=== PATIENT | female | born 1935 | race Caucasian/White ===

== ENCOUNTER → 2018-01-05 | Outpatient (CLI) | payer OTHER ==
[~2018-01-05] MED LIST: ACET325 PO; ALBIPROI; ALBIPROI INH; ALBU.083IS IH; ALBU3IS INH; ALBU90OI61 INH; ALPR.5; ASPI325; ASPI325 PO; ATOR10; ATOR10 PO; ATOR20; ATOR20 PO; ATORVASTATIN CA10 MG PO; AZIT500 PO; Aspir-Low81 MG PO; BUDE.5 NEB; BUME2 PO; CARI350 PO; CEFU500 PO; CEPH500; CEPH500 PO; CLOP75 PO; CODACE30 PO; COMBIVENT RESPIM4 GM INH; CYCL10 PO; Carac30 GM TP; Cerovite Advan1 EACH PO; DOCU100 PO; FAMO20 PO; FLUO25TC TOP; FLUSAL2505 INH; FURO20 PO; FURO40; FURO40 PO; GABA100 PO; GUAI600T33 PO; HYDACE10B; HYDACE5 PO; IBUP600 PO; IBUP800; LASIX; LAVAP17G PO; LIDO5TP TOP; METO2.5 PO; METO25 PO; METO50 PO; METO50ER; MIRT30ST MM; MUCINEX D ER 61 EACH PO; MULVITB&C PO; NITR.6SL SL; Neurontin 100100 MG PO; OMEP20ER PO; OMEPRAZOLE MAGN20 MG PO; OXYC10TA19 PO; Oxycodone HCl20 M1 PO; PAIN & FEVER325 MG PO; PARI1 PO; PARICALCITOL1 MCG PO; PIOG30 PO; PIOG45; POLY17UD PO; POTA10T; POTA10T PO; POTCHL10ER PO; POTCHL20ER; POTCHL20ER PO; PRED10; Pantoprazole So40 MG PO; Plavix75 MG PO; Potassium Chlo10 ME1 PO; Prednisone20 MG PO; QUIN10; QUIN5 PO; QUINAPRIL HCL PO; RANI150EL; SPIR25 PO; [UNRECOGNIZED DRUG - REMARK]
== END | disposition home or self-care (01) ==
LOC: LAB SHORT 07:21 → PLD 07:21
DX: C44.622 Squamous cell carcinoma of skin of right upper limb, including shoulder (principal)
CPT/HCPCS: 88305

== ENCOUNTER 2018-03-06 17:22 | Emergency (ER) | payer OTHER ==
[~2018-03-06] VITALS: Ht 152.4 cm; Wt 62.6 kg
[~2018-03-06 17:22] MED LIST changes: -ALBU3IS INH; -Cerovite Advan1 EACH PO; -FAMO20 PO; -MIRT30ST MM; -OMEPRAZOLE MAGN20 MG PO; -POTCHL20ER PO; -Pantoprazole So40 MG PO; -RANI150EL; -SPIR25 PO
[2018-03-06] MEDS ORDERED: RANI150EL (18:34)
[2018-03-06] MEDS ORDERED: CLOP75 PO (18:34)
[2018-03-06] MEDS ORDERED: Cerovite Advan1 EACH PO (18:35)
[2018-03-06] MEDS ORDERED: BUME2 PO (18:35)
[2018-03-06] MEDS ORDERED: NITR.6SL SL (18:36)
== END 2018-03-06 19:34 | disposition home or self-care (01) ==
LOC: ER 17:22
DX: S80.11XA Contusion of right lower leg, initial encounter (principal); J44.9 Chronic obstructive pulmonary disease, unspecified; I10 Essential (primary) hypertension; I25.2 Old myocardial infarction; Z87.891 Personal history of nicotine dependence; Z79.899 Other long term (current) drug therapy; Z79.82 Long term (current) use of aspirin; Z79.01 Long term (current) use of anticoagulants; W22.8XXA Striking against or struck by other objects, initial encounter
CPT/HCPCS: 93971; 99284

== ENCOUNTER 2018-06-05 17:47 | Inpatient (IN) | payer OTHER ==
[~2018-06-05] VITALS: Ht 152.4 cm; Wt 56.3 kg
[~2018-06-05 17:47] MED LIST changes: +Cerovite Advan1 EACH PO; +OMEPRAZOLE MAGN20 MG PO; +RANI150EL
[2018-06-05] MEDS ORDERED: ALBU3IS INH (18:45)
[2018-06-05] MEDS ORDERED: Pantoprazole So40 MG PO (18:46)
[2018-06-05 19:34] LABS: BASOPHILS ABSOLUTE AUTO 0.02 K/mm3 (0.00-0.23); BASOPHILS PERCENT AUTO 0 % (0-2); EOSINOPHILS ABSOLUTE AUTO 0.05 K/mm3 (0.00-0.68); EOSINOPHILS PERCENT AUTO 1 % (0-6); Hematocrit 34.7 % (33.0-51.0); Hemoglobin 12.3 g/dL (11.5-16.0); IMMATURE GRAN ABSOLUTE AUTO 0.03 K/mm3 (0.00-0.10); IMMATURE GRAN PERCENT AUTO 0 % (0-1); LYMPHOCYTES ABSOLUTE AUTO 1.09 K/mm3 (0.84-5.20); LYMPHOCYTES PERCENT AUTO 11 % (21-46); MONOCYTES ABSOLUTE AUTO 1.28 K/mm3 (0.16-1.47); MONOCYTES PERCENT AUTO 13 % (4-13); Mean Corpuscular HGB 32.5 pg (26.0-34.0); Mean Corpuscular HGB Conc 35.4 g/dL (31.5-36.5); Mean Corpuscular Volume 92 fL (80-100); Mean Platelet Volume 9.9 fL (9.1-12.4); NEUTROPHILS ABSOLUTE AUTO 7.24 K/mm3 (1.96-9.15); NEUTROPHILS PERCENT AUTO 75 % (41-73); Platelet Count 267 K/mm3 (150-400); RDW Coefficient Variation 12.5 % (11.7-14.2); RDW Standard Deviation 41.7 fL (35.1-46.3); Red Blood Cell Count 3.78 M/mm3 (3.80-5.20); White Blood Cell Count 9.71 K/mm3 (4.00-11.30)
[2018-06-05 21:58] LABS: Magnesium, Blood 1.8 mg/dL (1.6-2.4); Phosphorus, Blood 2.8 mg/dL (2.5-4.9)
[2018-06-06 04:41] LABS: Hematocrit 31.5 % (33.0-51.0); Hemoglobin 11.1 g/dL (11.5-16.0)
[2018-06-06 05:07] LABS: Bun/Creatinine Ratio 21.1 (12.0-20.0); Calcium, Blood 7.6 mg/dL (8.5-10.1); Creatinine, Blood 1.09 mg/dL (0.40-1.00); Potassium, Blood 2.4 mmol/L (3.5-5.5)
[2018-06-06 05:09] LABS: Magnesium, Blood 1.7 mg/dL (1.6-2.4); Uric Acid, Blood 8.2 mg/dL (2.6-6.0)
[2018-06-06 05:16] LABS: Albumin, Blood 3.1 g/dL (3.4-5.0); Anion Gap 8 mmol/L (6-16); Blood Urea Nitrogen 23 mg/dL (8-24); Bun/Creatinine Ratio 21.5 (12.0-20.0); CO2, Blood 39 mmol/L (21-32); Calcium, Blood 7.6 mg/dL (8.5-10.1); Chloride, Blood 79 mmol/L (98-108); Creatinine, Blood 1.07 mg/dL (0.40-1.00); Glomerular Filtration Rate 52 (60-); Glucose, Blood 110 mg/dL (70-99); Phosphorus, Blood 2.7 mg/dL (2.5-4.9); Potassium, Blood 2.4 mmol/L (3.5-5.5); Sodium, Blood 126 mmol/L (136-145)
[2018-06-07 05:14] LABS: Hematocrit 33.1 % (33.0-51.0); Hemoglobin 11.2 g/dL (11.5-16.0)
[2018-06-07 05:30] LABS: Albumin, Blood 3.1 g/dL (3.4-5.0); Anion Gap 8 mmol/L (6-16); Blood Urea Nitrogen 22 mg/dL (8-24); CO2, Blood 41 mmol/L (21-32); Calcium, Blood 8.1 mg/dL (8.5-10.1); Chloride, Blood 82 mmol/L (98-108); Creatinine, Blood 1.16 mg/dL (0.40-1.00); Glomerular Filtration Rate 48 (60-); Glucose, Blood 110 mg/dL (70-99); Magnesium, Blood 1.9 mg/dL (1.6-2.4); Phosphorus, Blood 2.4 mg/dL (2.5-4.9); Potassium, Blood 2.8 mmol/L (3.5-5.5); Sodium, Blood 131 mmol/L (136-145)
[2018-06-08 05:13] LABS: Hematocrit 33.9 % (33.0-51.0); Hemoglobin 11.2 g/dL (11.5-16.0)
[2018-06-08 05:52] LABS: Magnesium, Blood 1.8 mg/dL (1.6-2.4)
[2018-06-08 05:56] LABS: Albumin, Blood 3.1 g/dL (3.4-5.0); Anion Gap 8 mmol/L (6-16); Blood Urea Nitrogen 21 mg/dL (8-24); Bun/Creatinine Ratio 18.4 (12.0-20.0); CO2, Blood 40 mmol/L (21-32); Calcium, Blood 8.6 mg/dL (8.5-10.1); Chloride, Blood 85 mmol/L (98-108); Creatinine, Blood 1.14 mg/dL (0.40-1.00); Glomerular Filtration Rate 49 (60-); Glucose, Blood 101 mg/dL (70-99); Phosphorus, Blood 3.2 mg/dL (2.5-4.9); Potassium, Blood 4.1 mmol/L (3.5-5.5); Sodium, Blood 133 mmol/L (136-145)
[2018-06-09 05:12] LABS: Hematocrit 35.2 % (33.0-51.0); Hemoglobin 11.4 g/dL (11.5-16.0)
[2018-06-09 05:38] LABS: Albumin, Blood 3.1 g/dL (3.4-5.0); Anion Gap 3 mmol/L (6-16); Blood Urea Nitrogen 20 mg/dL (8-24); Bun/Creatinine Ratio 17.5 (12.0-20.0); CO2, Blood 40 mmol/L (21-32); Calcium, Blood 8.9 mg/dL (8.5-10.1); Chloride, Blood 89 mmol/L (98-108); Creatinine, Blood 1.14 mg/dL (0.40-1.00); Glomerular Filtration Rate 49 (60-); Glucose, Blood 98 mg/dL (70-99); Magnesium, Blood 1.8 mg/dL (1.6-2.4); Phosphorus, Blood 3.3 mg/dL (2.5-4.9); Potassium, Blood 4.7 mmol/L (3.5-5.5); Sodium, Blood 132 mmol/L (136-145)
[2018-06-10 05:22] LABS: Hematocrit 35.2 % (33.0-51.0); Hemoglobin 11.4 g/dL (11.5-16.0)
[2018-06-10 05:43] LABS: Albumin, Blood 3.2 g/dL (3.4-5.0); Anion Gap 4 mmol/L (6-16); Blood Urea Nitrogen 22 mg/dL (8-24); Bun/Creatinine Ratio 16.2 (12.0-20.0); CO2, Blood 40 mmol/L (21-32); Calcium, Blood 9.3 mg/dL (8.5-10.1); Chloride, Blood 89 mmol/L (98-108); Creatinine, Blood 1.36 mg/dL (0.40-1.00); Glomerular Filtration Rate 40 (60-); Glucose, Blood 103 mg/dL (70-99); Magnesium, Blood 1.8 mg/dL (1.6-2.4); Phosphorus, Blood 3.7 mg/dL (2.5-4.9); Potassium, Blood 4.7 mmol/L (3.5-5.5); Sodium, Blood 133 mmol/L (136-145)
[2018-06-11 05:27] LABS: Hematocrit 35.1 % (33.0-51.0); Hemoglobin 11.3 g/dL (11.5-16.0)
[2018-06-11 05:49] LABS: Albumin, Blood 3.2 g/dL (3.4-5.0); Anion Gap 4 mmol/L (6-16); Blood Urea Nitrogen 22 mg/dL (8-24); Bun/Creatinine Ratio 17.2 (12.0-20.0); CO2, Blood 37 mmol/L (21-32); Calcium, Blood 9.3 mg/dL (8.5-10.1); Chloride, Blood 91 mmol/L (98-108); Creatinine, Blood 1.28 mg/dL (0.40-1.00); Glomerular Filtration Rate 42 (60-); Glucose, Blood 92 mg/dL (70-99); Magnesium, Blood 1.9 mg/dL (1.6-2.4); Potassium, Blood 4.5 mmol/L (3.5-5.5); Sodium, Blood 132 mmol/L (136-145)
[2018-06-12 05:20] LABS: Hematocrit 32.8 % (33.0-51.0); Hemoglobin 10.8 g/dL (11.5-16.0)
[2018-06-12 05:47] LABS: Magnesium, Blood 2.1 mg/dL (1.6-2.4)
[2018-06-12 05:52] LABS: Albumin, Blood 3.1 g/dL (3.4-5.0); Anion Gap 4 mmol/L (6-16); Blood Urea Nitrogen 20 mg/dL (8-24); Bun/Creatinine Ratio 15.9 (12.0-20.0); CO2, Blood 39 mmol/L (21-32); Calcium, Blood 9.4 mg/dL (8.5-10.1); Chloride, Blood 92 mmol/L (98-108); Creatinine, Blood 1.26 mg/dL (0.40-1.00); Glomerular Filtration Rate 43 (60-); Glucose, Blood 92 mg/dL (70-99); Phosphorus, Blood 3.9 mg/dL (2.5-4.9); Sodium, Blood 135 mmol/L (136-145)
[2018-06-12] MEDS ORDERED: SPIR25 PO (12:12)
[2018-06-13 05:14] LABS: Hematocrit 35.4 % (33.0-51.0); Hemoglobin 11.3 g/dL (11.5-16.0)
[2018-06-13 05:33] LABS: Albumin, Blood 3.3 g/dL (3.4-5.0); Anion Gap 6 mmol/L (6-16); Blood Urea Nitrogen 19 mg/dL (8-24); Bun/Creatinine Ratio 14.6 (12.0-20.0); CO2, Blood 36 mmol/L (21-32); Calcium, Blood 8.8 mg/dL (8.5-10.1); Chloride, Blood 93 mmol/L (98-108); Glomerular Filtration Rate 42 (60-); Glucose, Blood 87 mg/dL (70-99); Magnesium, Blood 2.2 mg/dL (1.6-2.4); Phosphorus, Blood 4.2 mg/dL (2.5-4.9); Sodium, Blood 135 mmol/L (136-145)
[2018-06-13 09:15] LABS: ALDOS/RENIN RATIO 1.3 (0.0-30.0); ALDOSTERONE 22.9 ng/dL (0.0-30.0)
== END 2018-06-13 08:35 | disposition home or self-care (01) | DRG 683 ==
LOC: ER 17:47 → MEDS 18:23 → ENPENDDIS 06-12 10:23 → EDPENDDIS 06-12 10:23 → MEDS 06-13 08:35
PROVIDERS: Emergency Medicine; Hospitalist; Internal Medicine Nephrology
DX: N17.9 Acute kidney failure, unspecified (principal); I50.32 Chronic diastolic (congestive) heart failure; I13.0 Hypertensive heart and chronic kidney disease with heart failure and stage 1 through stage 4 chronic kidney disease, or unspecified chronic kidney disease; E87.1 Hypo-osmolality and hyponatremia; E87.3 Alkalosis; E87.6 Hypokalemia; N25.81 Secondary hyperparathyroidism of renal origin; J44.9 Chronic obstructive pulmonary disease, unspecified; M81.0 Age-related osteoporosis without current pathological fracture; I25.2 Old myocardial infarction; I48.0 Paroxysmal atrial fibrillation; N18.3 Chronic kidney disease, stage 3 (moderate); I25.10 Atherosclerotic heart disease of native coronary artery without angina pectoris; Z95.5 Presence of coronary angioplasty implant and graft; Z87.891 Personal history of nicotine dependence; E87.70 Fluid overload, unspecified; E88.09 Other disorders of plasma-protein metabolism, not elsewhere classified; E87.8 Other disorders of electrolyte and fluid balance, not elsewhere classified; R79.9 Abnormal finding of blood chemistry, unspecified; D63.1 Anemia in chronic kidney disease; Z99.81 Dependence on supplemental oxygen; T50.2X5A Adverse effect of carbonic-anhydrase inhibitors, benzothiadiazides and other diuretics, initial encounter; Y92.9 Unspecified place or not applicable
CPT/HCPCS: 36415; 74176; 76770; 80048; 80069; 82088; 82533; 83735; 83880; 84100; 84132; 84244; 84295; 84443; 84550; 85014; 85018; 85025; 87493; 93005; 93010; 94640; 94760; 96361; 96374; 97116; 97161; 97530; 99285-25; G8978; G8979; J1644; J3480; J7030; J7060

== ENCOUNTER 2018-06-20 11:30 | Inpatient (IN) | payer OTHER ==
[~2018-06-20] VITALS: Ht 152.4 cm; Wt 53.6 kg
[~2018-06-20 11:30] MED LIST changes: +ALBU3IS INH; +Pantoprazole So40 MG PO; +SPIR25 PO
[2018-06-20 11:54] LABS: BASOPHILS ABSOLUTE AUTO 0.01 K/mm3 (0.00-0.23); BASOPHILS PERCENT AUTO 0 % (0-2); EOSINOPHILS ABSOLUTE AUTO 0.01 K/mm3 (0.00-0.68); EOSINOPHILS PERCENT AUTO 0 % (0-6); Hematocrit 35.7 % (33.0-51.0); Hemoglobin 13.2 g/dL (11.5-16.0); IMMATURE GRAN ABSOLUTE AUTO 0.03 K/mm3 (0.00-0.10); IMMATURE GRAN PERCENT AUTO 0 % (0-1); LYMPHOCYTES ABSOLUTE AUTO 0.54 K/mm3 (0.84-5.20); LYMPHOCYTES PERCENT AUTO 5 % (21-46); MONOCYTES ABSOLUTE AUTO 0.96 K/mm3 (0.16-1.47); MONOCYTES PERCENT AUTO 9 % (4-13); Mean Corpuscular HGB 33.3 pg (26.0-34.0); Mean Corpuscular Volume 90 fL (80-100); Mean Platelet Volume 9.5 fL (9.1-12.4); NEUTROPHILS ABSOLUTE AUTO 8.75 K/mm3 (1.96-9.15); NEUTROPHILS PERCENT AUTO 85 % (41-73); Platelet Count 260 K/mm3 (150-400); RDW Coefficient Variation 11.5 % (11.7-14.2); RDW Standard Deviation 37.8 fL (35.1-46.3); Red Blood Cell Count 3.96 M/mm3 (3.80-5.20)
[2018-06-20 12:48] LABS: Albumin, Blood 3.8 g/dL (3.4-5.0); Albumin/Globulin Ratio 0.9 (0.8-1.8); Bun/Creatinine Ratio 23.3 (12.0-20.0); Creatinine, Blood 1.16 mg/dL (0.40-1.00); Globulin, Blood 4.1 g/dL (2.2-4.0); Potassium, Blood 1.8 mmol/L (3.5-5.5); Total Protein, Blood 7.9 g/dL (6.4-8.2)
[2018-06-20 13:19] LABS: Troponin I 0.018 ng/mL (0.000-0.040)
[2018-06-20 16:47] LABS: Potassium, Blood 2.2 mmol/L (3.5-5.5)
[2018-06-20 16:51] LABS: Magnesium, Blood 1.7 mg/dL (1.6-2.4); Uric Acid, Blood 8.4 mg/dL (2.6-6.0)
[2018-06-21 02:06] LABS: Potassium, Blood 3.8 mmol/L (3.5-5.5)
[2018-06-21 03:41] LABS: Hematocrit 32.7 % (33.0-51.0); Hemoglobin 11.4 g/dL (11.5-16.0)
[2018-06-21 04:05] LABS: Albumin, Blood 3.2 g/dL (3.4-5.0); Anion Gap 6 mmol/L (6-16); Blood Urea Nitrogen 22 mg/dL (8-24); CO2, Blood 37 mmol/L (21-32); Calcium, Blood 7.3 mg/dL (8.5-10.1); Chloride, Blood 85 mmol/L (98-108); Creatinine, Blood 1.05 mg/dL (0.40-1.00); Glomerular Filtration Rate 53 (60-); Glucose, Blood 98 mg/dL (70-99); Magnesium, Blood 1.7 mg/dL (1.6-2.4); Phosphorus, Blood 1.3 mg/dL (2.5-4.9); Potassium, Blood 3.4 mmol/L (3.5-5.5); Sodium, Blood 128 mmol/L (136-145)
[2018-06-21 14:43] LABS: Phosphorus, Blood 3.4 mg/dL (2.5-4.9); Potassium, Blood 3.8 mmol/L (3.5-5.5)
[2018-06-22 05:38] LABS: Hematocrit 39.7 % (33.0-51.0); Hemoglobin 13.5 g/dL (11.5-16.0)
[2018-06-22 06:03] LABS: Albumin, Blood 3.5 g/dL (3.4-5.0); Anion Gap 12 mmol/L (6-16); Blood Urea Nitrogen 14 mg/dL (8-24); Bun/Creatinine Ratio 16.3 (12.0-20.0); CO2, Blood 34 mmol/L (21-32); Calcium, Blood 8.1 mg/dL (8.5-10.1); Chloride, Blood 88 mmol/L (98-108); Creatinine, Blood 0.86 mg/dL (0.40-1.00); Glomerular Filtration Rate >60 (60-); Glucose, Blood 107 mg/dL (70-99); Phosphorus, Blood 1.8 mg/dL (2.5-4.9); Sodium, Blood 134 mmol/L (136-145)
[2018-06-22] MEDS ORDERED: FAMO20 PO (13:10)
[2018-06-22] MEDS ORDERED: MIRT30ST MM (13:11)
== END 2018-06-22 13:30 | DRG 683 ==
LOC: ER 11:30 → ICUE 13:47 → ICUW 13:47 → ICUE 14:37 → MEDS 14:56 → ICUE 06-21 09:50 → MEDS 06-21 15:15 → ENPENDDIS 06-22 10:14 → MEDS 06-22 13:30
PROVIDERS: Emergency Medicine; Internal Medicine; Internal Medicine Nephrology
DX: N17.9 Acute kidney failure, unspecified (principal); I13.0 Hypertensive heart and chronic kidney disease with heart failure and stage 1 through stage 4 chronic kidney disease, or unspecified chronic kidney disease; E87.1 Hypo-osmolality and hyponatremia; N25.81 Secondary hyperparathyroidism of renal origin; J44.9 Chronic obstructive pulmonary disease, unspecified; I25.2 Old myocardial infarction; M81.0 Age-related osteoporosis without current pathological fracture; Z95.5 Presence of coronary angioplasty implant and graft; E87.6 Hypokalemia; E86.0 Dehydration; N18.3 Chronic kidney disease, stage 3 (moderate); Z87.891 Personal history of nicotine dependence; Z79.82 Long term (current) use of aspirin; E86.1 Hypovolemia; I48.91 Unspecified atrial fibrillation; E87.70 Fluid overload, unspecified; E83.39 Other disorders of phosphorus metabolism; D63.1 Anemia in chronic kidney disease; R26.89 Other abnormalities of gait and mobility
CPT/HCPCS: 36415; 71046; 80048; 80053; 80069; 82533; 83735; 83880; 83930; 84100; 84132; 84295; 84443; 84484; 84550; 85014; 85018; 85025; 93005; 93010; 96365; 97116; 97161; 97166; 97535; 99285-25; G8978; G8979; G8987; G8988; J1650; J3480; J7030; J7040; J7060; Q0167

== ENCOUNTER 2018-07-08 14:53 | Emergency (ER) | payer OTHER ==
[~2018-07-08] VITALS: Ht 154.9 cm; Wt 68.0 kg
[~2018-07-08 14:53] MED LIST changes: +FAMO20 PO; +MIRT30ST MM
[2018-07-08] MEDS ORDERED: POTCHL20ER PO (15:26)
[2018-07-08] MEDS ORDERED: Oxycodone HCl20 M1 PO (15:27)
[2018-07-08 16:09] LABS: BASOPHILS ABSOLUTE AUTO 0.05 K/mm3 (0.00-0.23); BASOPHILS PERCENT AUTO 1 % (0-2); EOSINOPHILS ABSOLUTE AUTO 0.06 K/mm3 (0.00-0.68); EOSINOPHILS PERCENT AUTO 1 % (0-6); Hematocrit 37.8 % (33.0-51.0); IMMATURE GRAN ABSOLUTE AUTO 0.02 K/mm3 (0.00-0.10); IMMATURE GRAN PERCENT AUTO 0 % (0-1); LYMPHOCYTES ABSOLUTE AUTO 0.71 K/mm3 (0.84-5.20); LYMPHOCYTES PERCENT AUTO 12 % (21-46); MONOCYTES ABSOLUTE AUTO 0.77 K/mm3 (0.16-1.47); MONOCYTES PERCENT AUTO 13 % (4-13); Mean Corpuscular HGB 32.6 pg (26.0-34.0); Mean Corpuscular HGB Conc 31.7 g/dL (31.5-36.5); Mean Corpuscular Volume 103 fL (80-100); NEUTROPHILS PERCENT AUTO 73 % (41-73); Platelet Count 210 K/mm3 (150-400); RDW Coefficient Variation 12.2 % (11.7-14.2); RDW Standard Deviation 46.6 fL (35.1-46.3); Red Blood Cell Count 3.68 M/mm3 (3.80-5.20); White Blood Cell Count 6.01 K/mm3 (4.00-11.30)
[2018-07-08 16:55] LABS: Albumin, Blood 3.3 g/dL (3.4-5.0); Albumin/Globulin Ratio 0.9 (0.8-1.8); Bilirubin, Total 0.6 mg/dL (0.1-1.0); Calcium, Blood 8.9 mg/dL (8.5-10.1); Globulin, Blood 3.8 g/dL (2.2-4.0); Potassium, Blood 4.9 mmol/L (3.5-5.5); Total Protein, Blood 7.1 g/dL (6.4-8.2)
== END 2018-07-08 20:41 | disposition home or self-care (01) ==
LOC: ER 14:53
PROVIDERS: Emergency Medicine
DX: R45.1 Restlessness and agitation (principal); R41.82 Altered mental status, unspecified; F03.90 Unspecified dementia, unspecified severity, without behavioral disturbance, psychotic disturbance, mood disturbance, and anxiety; J44.9 Chronic obstructive pulmonary disease, unspecified; I10 Essential (primary) hypertension; I25.2 Old myocardial infarction; I48.91 Unspecified atrial fibrillation; Z79.899 Other long term (current) drug therapy; Z79.01 Long term (current) use of anticoagulants; Z79.82 Long term (current) use of aspirin; Z79.51 Long term (current) use of inhaled steroids; Z87.891 Personal history of nicotine dependence
CPT/HCPCS: 36415; 80053; 85025; 99285

== ENCOUNTER 2018-11-11 19:27 | Observation (INO) | payer OTHER ==
[~2018-11-11] VITALS: Ht 152.4 cm; Wt 69.8 kg
[~2018-11-11 19:27] MED LIST changes: -MIRT30ST MM; +MIRT30ST PO; +POTCHL20ER PO
[2018-11-11 20:10] LABS: Calcium, Ionized (POC) 0.96 mmol/L (1.10-1.46); Chloride (POC) 76 mmol/L (98-108); Creatinine (POC) 2.1 mg/dL (0.6-1.0); Glucose (ISTAT POC) 141 mg/dL (70-99); Hemoglobin (POC) 13.6 g/dL (12.0-16.0); Potassium (POC) 2.6 mmol/L (3.5-5.5); Sodium (POC) 128 mmol/L (135-148); Total CO2 (POC) 40 mmol/L (21-32)
[2018-11-11 21:26] LABS: Albumin, Blood 2.9 g/dL (3.4-5.0); Albumin/Globulin Ratio 0.8 (0.8-1.8); Bilirubin, Total 1.1 mg/dL (0.1-1.0); Bun/Creatinine Ratio 37.8 (12.0-20.0); Calcium, Blood 8.1 mg/dL (8.5-10.1); Creatinine, Blood 1.85 mg/dL (0.40-1.00); Globulin, Blood 3.6 g/dL (2.2-4.0); Total Protein, Blood 6.5 g/dL (6.4-8.2)
[2018-11-11 22:41] LABS: BASOPHILS ABSOLUTE AUTO 0.02 K/mm3 (0.00-0.23); BASOPHILS PERCENT AUTO 0 % (0-2); EOSINOPHILS PERCENT AUTO 0 % (0-6); Hematocrit 31.7 % (33.0-51.0); Hemoglobin 10.3 g/dL (11.5-16.0); IMMATURE GRAN ABSOLUTE AUTO 0.03 K/mm3 (0.00-0.10); IMMATURE GRAN PERCENT AUTO 0 % (0-1); LYMPHOCYTES ABSOLUTE AUTO 0.67 K/mm3 (0.84-5.20); LYMPHOCYTES PERCENT AUTO 6 % (21-46); MONOCYTES ABSOLUTE AUTO 0.78 K/mm3 (0.16-1.47); MONOCYTES PERCENT AUTO 7 % (4-13); Mean Corpuscular HGB 30.6 pg (26.0-34.0); Mean Corpuscular HGB Conc 32.5 g/dL (31.5-36.5); Mean Corpuscular Volume 94 fL (80-100); Mean Platelet Volume 9.8 fL (9.1-12.4); NEUTROPHILS ABSOLUTE AUTO 9.22 K/mm3 (1.96-9.15); NEUTROPHILS PERCENT AUTO 86 % (41-73); Platelet Count 234 K/mm3 (150-400); RDW Coefficient Variation 12.4 % (11.7-14.2); RDW Standard Deviation 42.9 fL (35.1-46.3); Red Blood Cell Count 3.37 M/mm3 (3.80-5.20); White Blood Cell Count 10.72 K/mm3 (4.00-11.30)
--- NOTE | 2018-11-12 04:00 | NUR ---
SHIFT SUMMARY PT ARRIVED TO FLOOR. PT WAS HEAD WAS CLEANED OF DRIED BLOOD AND DRESSED. PT ARMS WERE REDRESSED WELL. PT WAS ABLE TO AMBULATE TO RESTROOM WITH ONE ASSIST. PT COMPLAINED OF NO DIZZINESS. PT HAS NO ACUTE ISSUES NOTED AT THIS TIME. PT IS CURRENTLY SLEEPING AND BREATHING EASY. BED ALARM ARMED AND CALL LIGHT IN REACH.
[2018-11-12 05:29] LABS: BASOPHILS ABSOLUTE AUTO 0.03 K/mm3 (0.00-0.23); BASOPHILS PERCENT AUTO 0 % (0-2); EOSINOPHILS ABSOLUTE AUTO 0.04 K/mm3 (0.00-0.68); EOSINOPHILS PERCENT AUTO 0 % (0-6); Hemoglobin 9.5 g/dL (11.5-16.0); IMMATURE GRAN ABSOLUTE AUTO 0.03 K/mm3 (0.00-0.10); IMMATURE GRAN PERCENT AUTO 0 % (0-1); LYMPHOCYTES PERCENT AUTO 15 % (21-46); MONOCYTES ABSOLUTE AUTO 0.94 K/mm3 (0.16-1.47); MONOCYTES PERCENT AUTO 10 % (4-13); Mean Corpuscular HGB 30.2 pg (26.0-34.0); Mean Corpuscular HGB Conc 32.8 g/dL (31.5-36.5); Mean Corpuscular Volume 92 fL (80-100); Mean Platelet Volume 10.2 fL (9.1-12.4); NEUTROPHILS ABSOLUTE AUTO 7.07 K/mm3 (1.96-9.15); NEUTROPHILS PERCENT AUTO 74 % (41-73); Platelet Count 217 K/mm3 (150-400); RDW Coefficient Variation 12.5 % (11.7-14.2); Red Blood Cell Count 3.15 M/mm3 (3.80-5.20); White Blood Cell Count 9.51 K/mm3 (4.00-11.30)
[2018-11-12 05:49] LABS: Bun/Creatinine Ratio 38.4 (12.0-20.0); Calcium, Blood 7.5 mg/dL (8.5-10.1); Creatinine, Blood 1.72 mg/dL (0.40-1.00); Potassium, Blood 2.6 mmol/L (3.5-5.5)
--- NOTE | 2018-11-12 18:31 | NUR ---
SHIFT SUMMARY: NO ACUTE CHANGES TO REPORT THIS SHIFT. PT A&O; CALM AND COOPERATIVE WITH CARE. NO C/O PAIN OR NAUSEA THIS SHIFT. WEAKNESS TO BLE; 1-ASSIST c FWW TO BSC. K+ LOW; ORAL & IV K+ ADMINISTERED; LEVELS STILL TOO LOW TO DISCHARGE PATIENT. SKIN TEARS TO SCALP, R ARM; PREVENTATIVE MEPILEX TO COCCYX. LABS SCHEDULED FOR 11/13. JASON.
--- NOTE | 2018-11-13 02:55 | NUR ---
DEAN OF ADMISSIONS CALLED PT HAD SHORT RUN OF V-TACH. PT WAS ASSESSED AND PT HAD STRONG RADIAL PULSE AND REPORTED NO CX PAIN OR SOB.
--- NOTE | 2018-11-13 03:17 | NUR ---
SHIFT SUMMARY PT HAD A GOOD SHIFT. PT ATE ICE CHIPS AND WATCHED THE NEWS THROUGHOUT THE NIGHT. PT DID HAVE SHORT RUN OF V-TACH, PT HAD NO ISSUES RELATED TO V-TACH RUN. PT IS CURRENTLY SLEEPING AND BREATHING EASY. CALL LIGHT IN REACH.
[2018-11-13 05:10] LABS: Bun/Creatinine Ratio 37.1 (12.0-20.0); Calcium, Blood 7.1 mg/dL (8.5-10.1); Creatinine, Blood 1.59 mg/dL (0.40-1.00); Magnesium, Blood 1.7 mg/dL (1.6-2.4); Potassium, Blood 3.9 mmol/L (3.5-5.5)
--- NOTE | 2018-11-13 18:07 | NUR ---
SHIFT SUMMARY PT AXO TO SELF, SURROUNDINGS AND FOLLOWING DIRECTIONS. PT EAGER TO BE DISCHARGED HOME. VSS, NO ACUTE CHANGES THIS SHIFT. ALL DRESSINGS CHANGED AND CDI. PT'S CAREGIVER CALLED NURSE AND STATED THAT PT DRINKS "RUM [employer]KE" ALL DAY. SHE STATES THAT PT "ALWAYS HAS A DRINK INFRONT OF HER." NURSE NOTIFIED DR SHEPPARD AT 1256 WHO INITIATED CIWAS BE ASSESSED Q4. PT HAS SCORED 3 WITH EACH. UP WITH 1 ASSIST WITH FWW AND GB. BED IN LOW POSITION, CALL LIGHT WITHIN REACH, BED ALARM ON.
--- NOTE | 2018-11-14 06:13 | NUR ---
dressings cdi on both arms and top of head, cooperative, a+o but [place], saline locked, call light in reach, 2 L via NC, will continue to monitor and treat until handoff given to day shift staff.
[2018-11-14] MEDS ORDERED: Tylenol325 MG PO (16:13)
[2018-11-14] MEDS ORDERED: Budesonide0.5 MG/2 M INH (16:15)
[2018-11-14] MEDS ORDERED: SPIR25 PO (16:16)
[2018-11-14] MEDS ORDERED: GAVILAX17 GM PO (16:16)
--- NOTE | 2018-11-14 17:04 | NUR ---
PT DISCHARGED PT DISCHARGED AT 1700. PT IN STABLE CONDITION WITH VSS. IV REMOVED & INTACT. PT GIVEN DC INSTRUCTIONS AND STATED NO FURTHER QUESTIONS. PT INSTRUCTED TO GIVE DC INSTRUCTIONS TO RASHMI, HER CAREGIVER, WHEN SHE GETS HOME. PT WHEELED OUT AND DRIVEN HOME BY ttwick.
== END 2018-11-14 16:55 | disposition home or self-care (01) ==
LOC: ER 19:27 → MEDS 19:28 → ENPENDDIS 11-14 15:54 → MEDS 11-14 16:55
PROVIDERS: Emergency Medicine; Hospitalist; ADMIT Internal Medicine
DX: S01.01XA Laceration without foreign body of scalp, initial encounter (principal); J44.9 Chronic obstructive pulmonary disease, unspecified; E87.6 Hypokalemia; I48.91 Unspecified atrial fibrillation; F10.20 Alcohol dependence, uncomplicated; I13.0 Hypertensive heart and chronic kidney disease with heart failure and stage 1 through stage 4 chronic kidney disease, or unspecified chronic kidney disease; I50.32 Chronic diastolic (congestive) heart failure; N18.4 Chronic kidney disease, stage 4 (severe); N17.9 Acute kidney failure, unspecified; I25.10 Atherosclerotic heart disease of native coronary artery without angina pectoris; E78.5 Hyperlipidemia, unspecified; M81.0 Age-related osteoporosis without current pathological fracture; E87.1 Hypo-osmolality and hyponatremia; K46.9 Unspecified abdominal hernia without obstruction or gangrene; R26.9 Unspecified abnormalities of gait and mobility; Z99.81 Dependence on supplemental oxygen; Z79.82 Long term (current) use of aspirin; Z79.899 Other long term (current) drug therapy; W18.30XA Fall on same level, unspecified, initial encounter
CPT/HCPCS: 12002; 36415; 70450; 74018; 80047; 80048; 80053; 83735; 84132; 85014; 85025; 93005; 93010; 94640; 94760; 96361; 96374; 97116; 97161; 97530; 99285-25; G0378; J2405; J3480; J7120

== ENCOUNTER 2018-12-19 09:38 | Inpatient (IN) | payer OTHER ==
[~2018-12-19] VITALS: Ht 152.4 cm; Wt 48.4 kg
[~2018-12-19 09:38] MED LIST changes: -ALBU3IS INH; -ATORVASTATIN CA10 MG PO; -Aspir-Low81 MG PO; +Budesonide0.5 MG/2 M INH; +GAVILAX17 GM PO; -MIRT30ST PO; -Neurontin 100100 MG PO; -POTCHL20ER PO; +Tylenol325 MG PO
[2018-12-19 10:08] LABS: Source, Urine Clean Catch
[2018-12-19 10:11] LABS: Bilirubin, Urine Neg (Neg); Blood, Urine Neg (Neg); Glucose Qualitative, Urine Neg (Neg); Ketones, Urine 2+ (Neg); Leukocyte Esterase, Urine Neg (Neg); Nitrite, Urine Neg (Neg); Protein, Urine Neg (Neg); Specific Gravity, Urine 1.015 (1.003-1.022); Urobilinogen, Urine 1+ (Normal)
[2018-12-19 10:17] LABS: Appearance, Urine Clear (Clear); Color, Urine Yellow (P-Yellow)
[2018-12-19 10:46] LABS: BASOPHILS ABSOLUTE AUTO 0.03 K/mm3 (0.00-0.23); BASOPHILS PERCENT AUTO 1 % (0-2); EOSINOPHILS ABSOLUTE AUTO 0.04 K/mm3 (0.00-0.68); EOSINOPHILS PERCENT AUTO 1 % (0-6); Hematocrit 42.6 % (33.0-51.0); Hemoglobin 13.7 g/dL (11.5-16.0); IMMATURE GRAN ABSOLUTE AUTO 0.01 K/mm3 (0.00-0.10); IMMATURE GRAN PERCENT AUTO 0 % (0-1); LYMPHOCYTES PERCENT AUTO 24 % (21-46); MONOCYTES ABSOLUTE AUTO 0.69 K/mm3 (0.16-1.47); MONOCYTES PERCENT AUTO 11 % (4-13); Mean Corpuscular HGB 29.4 pg (26.0-34.0); Mean Corpuscular HGB Conc 32.2 g/dL (31.5-36.5); Mean Corpuscular Volume 91 fL (80-100); Mean Platelet Volume 9.7 fL (9.1-12.4); NEUTROPHILS ABSOLUTE AUTO 4.07 K/mm3 (1.96-9.15); NEUTROPHILS PERCENT AUTO 64 % (41-73); Platelet Count 224 K/mm3 (150-400); RDW Coefficient Variation 12.8 % (11.7-14.2); RDW Standard Deviation 42.5 fL (35.1-46.3); Red Blood Cell Count 4.66 M/mm3 (3.80-5.20); White Blood Cell Count 6.34 K/mm3 (4.00-11.30)
[2018-12-19 11:09] LABS: Ethanol (Alcohol), Blood, Med <3 mg/dL
[2018-12-19 11:19] LABS: Alanine Aminotransfer (ALT/SGP 20 U/L (12-78); Albumin, Blood 3.4 g/dL (3.4-5.0); Albumin/Globulin Ratio 0.9 (0.8-1.8); Alk Phos 81 U/L (50-136); Anion Gap 9 mmol/L (6-16); Aspartate Aminotrans (AST/SGOT 54 U/L (12-37); Bilirubin, Total 1.3 mg/dL (0.1-1.0); Blood Urea Nitrogen 61 mg/dL (8-24); Bun/Creatinine Ratio 34.3 (12.0-20.0); CO2, Blood 43 mmol/L (21-32); Calcium, Blood 8.6 mg/dL (8.5-10.1); Chloride, Blood 83 mmol/L (98-108); Creatinine, Blood 1.78 mg/dL (0.40-1.00); Globulin, Blood 3.7 g/dL (2.2-4.0); Glomerular Filtration Rate 29 (60-); Glucose, Blood 126 mg/dL (70-99); Potassium, Blood 2.4 mmol/L (3.5-5.5); Sodium, Blood 135 mmol/L (136-145); Total Protein, Blood 7.1 g/dL (6.4-8.2)
[2018-12-19] MEDS ORDERED: **incomplete med rec (12:21)
[2018-12-19] MEDS ORDERED: ATORVASTATIN CA10 MG PO ×2 (12:39)
[2018-12-19] MEDS ORDERED: Neurontin 100100 MG PO ×2 (12:41)
[2018-12-19] MEDS ORDERED: Lopressor 25 mg25 MG PO ×2 (12:42)
[2018-12-19] MEDS ORDERED: MIRT30 PO ×2 (12:43)
[2018-12-19] MEDS ORDERED: POTCHL20ER PO ×2 (12:44)
[2018-12-19] MEDS ORDERED: SPIR25 PO ×2 (12:45)
[2018-12-19] MEDS ORDERED: DOCU100 PO ×2 (12:46)
[2018-12-19] MEDS ORDERED: OXYC10TA19 PO ×2 (12:46)
[2018-12-19] MEDS ORDERED: BUME2 PO ×2 (12:47)
[2018-12-19] MEDS ORDERED: Pantoprazole So40 MG PO ×2 (12:47)
[2018-12-19] MEDS ORDERED: CLOP75 PO ×2 (12:48)
[2018-12-19] MEDS ORDERED: Cerovite Advan1 EACH PO ×2 (12:49)
[2018-12-19] MEDS ORDERED: VITAMIN D-32000 UNIT PO ×2 (12:49)
[2018-12-19] MEDS ORDERED: GUAI600T33 PO ×2 (12:50)
[2018-12-19] MEDS ORDERED: Aspir-Low81 MG PO ×2 (12:56)
[2018-12-19] MEDS ORDERED: ALBU3IS INH ×2 (13:01)
[2018-12-19] MEDS ORDERED: ALBU90OI61 INH ×2 (13:01)
--- NOTE | 2018-12-19 15:58 | NUR ---
Initial Visit: Palliative Care Consult for Advanced Care Planning. Pt is resting in bed and is pleasantly confused. She is A&Ox2. Pt is unable to give reason why she is in the hospital and unable give current month or year. Pt dasia pain and dyspnea at this time. She does report dyspnea with exertion. She reports that she believes in God but does not practice any religous shweta. Pt reports that she lives with her friend Mary and does not have family. She reports that a caregiver comes and provides care but does not know how often and how long. Pt gives this RN permission to speak to her friend Mary. Pt reports no concerns at this time. Called and spoke with Pt's friend Mary and she reports the Pt just completed a new POLST with her PCP and differs from the POLST that is currently on file with hospital. Mary reads new POLST and states Pt's wishes are Attempt CPR, Full Treatment, and Defined Trial of Artificial Nutrition by Tube for 24 Hrs. Mary reports Pt's PCP singed POLST November of this year. Mary reports the Pt would benefit from more hours from her caregivers. Currently she receives assistance from medicaid for 2 1/2 hours a day through [facility]. Mary reports that her own health is poor and is moble only by wheel chair. She also reports the Pt is adamant about living at home and not in a care facility or foster home. Pt experiences intermittent incontinence of bowel and bladder. Experiences significant dyspnea with approximately 10 feet of ambulation. No other concerns reported at this time. PPS 40% KPS 50 ADLS 5/6 Plan: will place social service consult for assistance with in home caregiving and remain available.
[2018-12-19 18:14] LABS: International Normalized Ratio 0.98; Prothrombin Time Results 10.4 Sec (9.7-11.5)
--- NOTE | 2018-12-19 18:58 | NUR ---
SHIFT SUMMARY PATIENT A&O X3. DENIES ANY PAIN. STATES SOME SOB W/ EXERTION. O2 @ 2-3L, SATS >90%. TELE A FIB @ 120 PER WEEKEND CAREGIVER. PER DR. TRINIDAD RN GAVE METOPROLOL 25 MG. NO ACUTE CHANGES THIS SHIFT. BED ALARM ON, CALL LIGHT WITHIN REACH.
[2018-12-20 04:59] LABS: Bun/Creatinine Ratio 34.3 (12.0-20.0); Calcium, Blood 9.1 mg/dL (8.5-10.1); Creatinine, Blood 1.66 mg/dL (0.40-1.00); Potassium, Blood 2.8 mmol/L (3.5-5.5)
--- NOTE | 2018-12-20 05:40 | NUR ---
VSS, AFEBRILE, A/O, FORGETFUL, SOFT SPOKEN, 18G R AC, 1 PA W/FWW, TELE: NSR, PAC, PVC, BBB, INCONT, LOW POTASSIUM, MEDS WHOLE IN APPLESAUCE, SLEPT WELL OVERNOC, NO COMPLAINTS. PLEASANT
--- NOTE | 2018-12-20 06:55 | NUR ---
Tele called to report that pt has converted to a-fib.
--- NOTE | 2018-12-20 09:04 | NUR ---
NOTIFIED DR. MIRANDA OF PT'S BP OF 100/61 AND ASKED FOR PARAMETERS FOR METOPROLOL AND ALDACTONE. DR. MIRANDA SAID TO HOLD MEDS FOR HR LESS THAN 55 AND SYSTOLIC BLOOD PRESSURE LESS THAN 90. NO OTHER NEW ORDERS AT THIS TIME.
--- NOTE | 2018-12-20 11:18 | NUR ---
Spiritual care visit consucted. Patient was lying on her side on her bed when I entered the room. I sat down on the chair bedside and introduced myself. Patient was sleepy and not very talkative, but when I asked her if I could pray for her the patient's face lit up and she said "Yes." I provided prayer and patient followed up the prayer with a firm "Amen." As I thanked patient for letting me interupt her sleep she said, "Please feel free to come back anytime."
--- NOTE | 2018-12-20 15:48 | NUR ---
SHIFT SUMMARY- PT AXO X2. PT PLEASANTLY CONFUSED. PT DENIES PAIN. DENIES SOB. RESP E/U ON 3L O2 NC. DENIES N/V. MEDS WHOLE IN APPLESAUCE. NSR WITH PVC'S AND PAC'S AT 62 PER PCU CONTENT ENGINEER. PT'S POTASSIUM LEVEL THIS AM 2.8. DR. MIRANDA AWARE. DR. MIRANDA ORDERED ONE TIME DOSE OF 20 MEQ OF POTASSIUM. 1 ASSIST WITH FWW TO BSC. NO OTHER SIGNIFICANT CHANGES THIS SHIFT.
--- NOTE | 2018-12-20 17:49 | NUR ---
NOTIFIED DR. MIRANDA TELE REPORTS PT HAD TWO 3 SECOND LONG PAUSES WHICH PT WAS ASLEEP DURING. PRINTS ARE ON THE FRONT OF THE CHART. NOTIFIED DR. MIRANDA TELE REPORTS PT'S HR SPIKED TO 160 THIS PM WHEN SHE GOT UP TO BSC AND TELE REPORTS IT WAS COMING DOWN FROM 120 WHEN PT GOT BACK TO HER CHAIR. NO NEW ORDERS AT THIS TIME.
--- NOTE | 2018-12-21 05:30 | NUR ---
SHIFT SUMMARY PT SLEPT WELL T/O SHIFT, USED BSC PRIOR TO GOING TO BED AND PT DRY THIS AM. PT HAD 2 3 SECOND PAUSES AGAIN DURING THE NIGHT. NO OTHER CHANGES NOTED. WILL CONTINUE TO MONITOR.
[2018-12-21 05:53] LABS: Albumin, Blood 3.2 g/dL (3.4-5.0); Anion Gap 5 mmol/L (6-16); Blood Urea Nitrogen 63 mg/dL (8-24); Bun/Creatinine Ratio 33.7 (12.0-20.0); CO2, Blood 41 mmol/L (21-32); Calcium, Blood 9.3 mg/dL (8.5-10.1); Chloride, Blood 87 mmol/L (98-108); Creatinine, Blood 1.87 mg/dL (0.40-1.00); Glomerular Filtration Rate 27 (60-); Glucose, Blood 104 mg/dL (70-99); Phosphorus, Blood 2.5 mg/dL (2.5-4.9); Potassium, Blood 3.9 mmol/L (3.5-5.5); Sodium, Blood 133 mmol/L (136-145)
--- NOTE | 2018-12-21 22:02 | NUR ---
Assumed care of pt at 1930 after recieving report from off-going nurse.
[2018-12-22 05:58] LABS: Albumin, Blood 3.2 g/dL (3.4-5.0); Anion Gap 8 mmol/L (6-16); Blood Urea Nitrogen 65 mg/dL (8-24); Bun/Creatinine Ratio 32.3 (12.0-20.0); CO2, Blood 39 mmol/L (21-32); Calcium, Blood 9.9 mg/dL (8.5-10.1); Chloride, Blood 87 mmol/L (98-108); Creatinine, Blood 2.01 mg/dL (0.40-1.00); Glomerular Filtration Rate 25 (60-); Glucose, Blood 145 mg/dL (70-99); Phosphorus, Blood 2.7 mg/dL (2.5-4.9); Potassium, Blood 3.2 mmol/L (3.5-5.5); Sodium, Blood 134 mmol/L (136-145)
--- NOTE | 2018-12-22 07:32 | NUR ---
shift summary:Pt has a frequent weak unproductive cough during night. Otherwise slept most of night. Pt npo p mn for pacer placement this am. Pt on telemetry- was a rapid afib most of night between 130-140 BPM. Pt goes up to 160-170 with exertion but goes back down after back in bed. No long pauses during the night. Pt has iv 18 guage saline lock and is ready for surgery this am.
--- NOTE | 2018-12-22 15:50 | NUR ---
PT TAKEN TO OR FOR PACER. CARE RELEASED.
--- NOTE | 2018-12-22 18:40 | NUR ---
[facility] RN STAYING WITH PT UNTIL ROOM AVAIL. REPORT RECEIVED AT 1845 H/C RN STATES LOW O2 READING ON PRESENT V/S. BUT PT IS TALKING, NOT ON O2, STATES NO ORDERS FOR PACER CARE IN PRESSURE, ETC. CALLED FOR REPORT FROM FLOOR RN RM [id number]. STATES PACER PLACED FOR PAUSES AND AFIB. ON 3L O2. PLACED IMMED. STATES PT A/O TO SELF AND PLACE. TURN Q2, FWW WITH 1 ASST. PT V/S TAKEN AT BEDSIDE BY H/C RN. 114/69 P 63. ORDERED EAR PROBE O2 SENSOR. BED IN LOW POSITION, CALL LITE IN REACH, BED ALARM ON FOR SAFETY. PACER SITE ON LEFT UPPER CH WALL. STERISTRIPS WITH OCCLUSIVE DRESSING. SOME BLEEDING NOTED UNDER DRESSING. ALL CONTAINED UNDER DRESSING. MULT BRUISING, SPOTTING AT SITE AND ON LEFT TRUNK AND ARM OF PT. PASSED INFORMATION TO VINH MARCIAL.
--- NOTE | 2018-12-22 18:50 | NUR ---
NOT ABLE TO OBTAIN ADEQUATE O2 READINGS. CALLED FOR RT TO BRING EAR PROBE
--- NOTE | 2018-12-22 21:25 | NUR ---
UPDATE DR SAAB CALLED AND NOTIFIED OF BLOOD OOZING AT THE PACEMAKER INSERTION SITE. STATED THAT ICE COULD BE PLACED PRN THROUGHOUT THE NIGHT FOR OOZING. DR SAAB SAID TO HOLD THE LOVENOX FOR NOW.
--- NOTE | 2018-12-23 01:30 | NUR ---
UPDATE ICE PLACED AT PACEMAKER INSERTION SITE PER DR SAAB'S ORDERS. DUE TO CONTINUED OOZING OF BLOOD AT SITE. WILL CONTINUE TO MONITOR.
--- NOTE | 2018-12-23 04:24 | NUR ---
UPDATE PACEMAKER PLACEMENT SITE CONTINUES TO OOZE. BLOOD UNDER CLEAR DRESSING AND HAS JUST BEGAN TO LEAK INTO PATIENT'S ARMPIT. CHARGE NURSE BRENDAN MALONE. DR SAAB NOTIFIED. AN ORDER FOR ICE AND PLACEMENT OF 2LB WEIGHT TO SITE WAS RECEIVED. H&H TO BE CHECKED THIS AM WELL. ICE PACK AND [address] VITALS CHARTED. WILL CONTINUE TO MONITOR.
[2018-12-23 04:37] LABS: Albumin, Blood 3.2 g/dL (3.4-5.0); Anion Gap 9 mmol/L (6-16); Blood Urea Nitrogen 56 mg/dL (8-24); Bun/Creatinine Ratio 33.3 (12.0-20.0); CO2, Blood 36 mmol/L (21-32); Calcium, Blood 9.3 mg/dL (8.5-10.1); Chloride, Blood 93 mmol/L (98-108); Creatinine, Blood 1.68 mg/dL (0.40-1.00); Glomerular Filtration Rate 31 (60-); Glucose, Blood 104 mg/dL (70-99); Phosphorus, Blood 2.8 mg/dL (2.5-4.9); Potassium, Blood 3.5 mmol/L (3.5-5.5); Sodium, Blood 138 mmol/L (136-145)
[2018-12-23 05:39] LABS: BASOPHILS ABSOLUTE AUTO 0.03 K/mm3 (0.00-0.23); BASOPHILS PERCENT AUTO 0 % (0-2); EOSINOPHILS ABSOLUTE AUTO 0.13 K/mm3 (0.00-0.68); EOSINOPHILS PERCENT AUTO 2 % (0-6); Hematocrit 41.1 % (33.0-51.0); Hemoglobin 13.1 g/dL (11.5-16.0); IMMATURE GRAN ABSOLUTE AUTO 0.03 K/mm3 (0.00-0.10); IMMATURE GRAN PERCENT AUTO 0 % (0-1); LYMPHOCYTES ABSOLUTE AUTO 1.19 K/mm3 (0.84-5.20); LYMPHOCYTES PERCENT AUTO 14 % (21-46); MONOCYTES ABSOLUTE AUTO 0.85 K/mm3 (0.16-1.47); MONOCYTES PERCENT AUTO 10 % (4-13); Mean Corpuscular HGB 29.8 pg (26.0-34.0); Mean Corpuscular HGB Conc 31.9 g/dL (31.5-36.5); Mean Corpuscular Volume 93 fL (80-100); Mean Platelet Volume 10.2 fL (9.1-12.4); NEUTROPHILS PERCENT AUTO 75 % (41-73); Platelet Count 144 K/mm3 (150-400); RDW Standard Deviation 44.8 fL (35.1-46.3); White Blood Cell Count 8.83 K/mm3 (4.00-11.30)
--- NOTE | 2018-12-23 07:15 | NUR ---
RECEIVED REPORT FROM AGGIE LAMB, AND ASSUMED CARE OF PT.
--- NOTE | 2018-12-23 08:00 | NUR ---
PATIENT TAKEN TO RADIOLOGY FOR CXR VIA GURNEY
--- NOTE | 2018-12-23 17:40 | NUR ---
NURSING SUMMARY SLEEPY, WAKES EASILY TO VOICE, CONFUSED, DOES NOT ALWAYS USE HER CALL LIGHT APPROPRIATELY, SOMETIMES YELLS OUT FOR HELP. S/P PACER PLACEMENT TO LEFT UPPER CHEST, SITE WITH ICE AND PRESSURE SAND BAG IN PLACE AT BEGINNING OF SHIFT, REMOVED, NO ACTIVE BLEEDING, BLOOD SATURATED STERISTRIPS UNDERNEATH OPSITE DRESSING, CALLED DR. SAAB FOR APPROVAL TO CHANGE THE DRESSING, CLEANED BY DABBING DRY WITH STERILE GUAZE, APPLIED 2X2 OVER STERISTRIPS, AND APPLIED OPSITE OVER. LEFT ARM SLING IN PLACE. PT REQUIRES FREQUENT REMINDERS TO NOT USE HER LEFT ARM. HOLDING LOVENOX. AFIB, VSS. LUNGS DIMINISHED, 2L O2 NC, SATS 91-93%. TOLERATING A CARDIAC DIET. WORKED WITH PHYSICAL THERAPY TODAY. ABLE TO GET OUT OF BED WITH ONE PERSON ASSISTANCE TO BEDSIDE COMMODE, USES WALKER. HEART RATE DOES INCREASE TO 140'S WITH EXERTION.
--- NOTE | 2018-12-24 07:59 | NUR ---
SHIFT SUMMARY PATIENT PLEASENT AND COOPERATIVE THROUGHOUT THE NIGHT. PATIENT APPEARED TO SLEEP WELL LAST NIGHT. NO BLEEDING NOTED ON NEW GAUZE THAT WAS PLACED YESTERDAY. SLING IN PLACE PER ORDERS. PATIENT UP TO THE BSC SEVERAL TIMES LAST NIGHT. PATIENT APPEARED TO BE ABLE TO MOVE SELF ABOUT IN BED AND WAS ASSISTED WITH TURNNING WELL. VITAL SIGNS CHARTED. REPORT GIVEN TO ONCOMING RN.
--- NOTE | 2018-12-24 08:21 | NUR ---
Bedside report received from Yaakov Gutiérrez RN. The pt has a large area of bruising around the pacemaker insertion site, as well as on her forearms and backs of her hands. She is alert, oriented to person, place, ongoing events, following directions. She has limited understanding of her medications, and recent pacemaker insertion. She is appropriate in conversation and is presently sitting up in bed, eating breakfast. Declined stool softener as well as out of bed for breakfast. Denies any pain at this time.
--- NOTE | 2018-12-24 12:01 | NUR ---
Assisted from bed to BSC for bowel movement and void; then assisted to the chair to eat her lunch. She states that she had been staying with friends for a few months, but "not any more" because they "have cut me loose". States that she probably needs some help in getting a place to stay after she leaves the hospital.
--- NOTE | 2018-12-24 15:44 | NUR ---
DISCHARGE PLANNING INITIAL NURSING ASSESSMENT OF NEEDS: I spoke with Mary, with whom the patient currently resides. Mary said that she no longer runs a foster home, but that Glenna (the patient) has been renting a room from her for the past 5-6 years, and has been allotted 2 hours/day of state funded caregiver help; however, the pt really needs another 2 hours/day in order to help her with her needs. There is another resident who has been a big help to Pat, but he has cancer and is slowly losing his ability to help. Mary herself is wheelchair bound and requires her own caregiver as well as a kristy lift for transfers. Mary states that she is very willing to have Pat come back and live with her, but it would be very helpful if the caregivers were allowed to give the evening help to Pat. Mary expressed conern for Pat due to Glenna's dementia and need for a stable environment as well as consistency in her surroundings and caregivers. At this time, the pt is able to get up to the chair and bedside commode with assistance, but is unable to use the walker because of her left arm being immobilized in a sling post pacemaker insertion on Tuesday. She requires moderate to maximum assistance to get up and transfer and toilet.
--- NOTE | 2018-12-24 18:27 | NUR ---
Today Shabana was alert, somewhat oriented and cooperative, able to get OOB to the chair for her meals, and use the bedside commode. Once she was ambulatory to the bathroom while using the walker. She walks very slowly and requires assistance to help her stand from a sitting position on bed, toilet, or bed. Poor appetite but no nausea or vomoting. Normal bowel movement. Spoke with the friend Mary from whom Shabana rents a room and receives assistance.
--- NOTE | 2018-12-25 07:51 | NUR ---
SHIFT SUMMARY PATIENT PLEASENT AND COOPERATIVE THROUGHOUT THE NIGHT. PATIENT APPEARED TO BE AWAKE MOST OF THE NIGHT WATCHING TV BUT SHE DID APPEAR TO NAP OCCATIONALLY. VITAL SIGNS CHARTED. THERE CONTINUES TO BE NO SIGN OF NEW BLEEDING AT PACEMAKER SITE. SLING IN PLACE. REPORT GIVEN TO ONCOMING RN.
--- NOTE | 2018-12-25 15:58 | NUR ---
Shabana has been out of bed to the chair for meals and also to the bathroom for toileting. She has been using the walker, and gait belt also in use as the pt has a recent history of falling at home. She denies pain. She states that she does not want to go anywhere except to the home where she rents a room from Mary because she wants to be with Mary.
--- NOTE | 2018-12-25 18:07 | NUR ---
Clinical Visit: Visited with patient. She would like to go home. Pt is oriented to place, situation, self. She is unable to tell me the month, day, year. She reports she has good support at home. She appears to be able to make decisions, demonstrates good conversational ability. Pt denies pain, anxiety. No concerns at this time, "besides wanting to go home," she states. Spoke to Nadia nurse. She reports that friend and housemate, Mary, is wanting her to come home. Mary has caregivers that are able to help sometimes. Mary has asked for patient to have additional caregiving ours at evening time, per Nadia. Will remain available.
--- NOTE | 2018-12-25 19:41 | NUR ---
190 Bedside report given to Nanci Bishop RN. Shabana appears to be sleeping. She is lying on her right side in the bed.
--- NOTE | 2018-12-26 06:01 | NUR ---
PCU NOC SHIFT SUMMARY PATIENT ORIENTED TO SELF AND LOCATION. CONFUSED TO DATE AND SITUATION. PATIENT HAD NO ACUTE EVENTS T/O SHIFT. LEFT PACER SITE HAS DRESSING INTACT WITH NO BLEEDING NOTED T/O SHIFT. VSS. WILL CONTINUE TO MONITOR AND GIVE REPORT TO ONCOME RN. CALL LIGHT W/I REACH AND BED ALARM ON.
--- NOTE | 2018-12-26 16:02 | NUR ---
The pt states that she is restless. I discussed discharge to another care facility, and explained that I see bruises and scabs on her head, and on her arms, and especially since she so recently had surgery I am concerned for her safety. I acknowledged that she loves Mary,and that Mary would love to have shabana back with her, but that she can't provide the level of care which would be safe for Shabana. Shabana states that she understand this, but that it isn't fair. States that she will give it some serious thought and consider going to a facility where she can get more care.
--- NOTE | 2018-12-27 04:50 | NUR ---
ASSUMED CARE OF PATIENT AT APPROXIMATELY 1910 FROM JASPAL Huerta RN. PATIENT CONFUSED; ALERT TO SELF AND . PATIENT ASLEEP DURING SHIFT CHANGE. REPORTED PAIN IN NECK THAT WAS SHARP AND TINGLING; PATIENT REPOSISTIONED AND PAIN WENT AWAY; REFUSED PAIN MEDICATIONS. PATIENT DENIES NAUSEA OR DIZZINESS. PATIENT ONE PERSON ASSIST W/ FWW OUT OF BED; MEDICAL NO TELE STATUS; OXYGEN SATURATION ABOVE 90% ON 2LPM VIA NC (REPORTED BASELINE). PIV S/L. PACEMAKER SITE WNL; DRESSING TO L UPPER CHEST WALL C/D/I; PATIENT REPORTS TENDERNESS NEAR SITE. PATIENT CURRENTLY SLEEPING IN BED; CALL LIGHT IN REACH; BED IN LOWEST POSISTION; BED ALARM ON; WILL CONTINUE TO MONITOR AND ASSESS UNTIL END OF SHIFT.
--- NOTE | 2018-12-27 09:36 | NUR ---
THERAPY IN TO SEE PATIENT THIS MORNING; UP TO CHAIR FOR BREAKFAST. VSS. NO CHANGES FROM SHIFT ASSESSMENT. REPORT GIVEN TO EBEN Gonzalez RN.
--- NOTE | 2018-12-27 11:22 | NUR ---
PT WITH ORDERS TO DC HOME. HEAT TREAT FURNACE OPERATOR WORKING ON HOME HEALTH AND HM PT/OT. WILL DISCUSS WITH FRIEND RASHMI WHOM PT LIVES WITH
== END 2018-12-27 14:41 | disposition home or self-care (01) | DRG 41 ==
LOC: ER 09:38 → MEDS 09:39 → ERHOLD 09:39 → MEDS 16:16 → PCU 12-22 18:30
PROVIDERS: Emergency Medicine; Internal Medicine; ADMIT Internal Medicine
PROC: 0JH606Z Insertion of Pacemaker, Dual Chamber into Chest Subcutaneous Tissue and Fascia, Open Approach (ICD-10-PCS; principal; 2018-12-22)
PROC: 02HK3JZ Insertion of Pacemaker Lead into Right Ventricle, Percutaneous Approach (ICD-10-PCS; 2018-12-22)
PROC: 02H63JZ Insertion of Pacemaker Lead into Right Atrium, Percutaneous Approach (ICD-10-PCS; 2018-12-22)
DX: G93.41 Metabolic encephalopathy (principal); I50.32 Chronic diastolic (congestive) heart failure; I13.0 Hypertensive heart and chronic kidney disease with heart failure and stage 1 through stage 4 chronic kidney disease, or unspecified chronic kidney disease; F10.27 Alcohol dependence with alcohol-induced persisting dementia; E44.1 Mild protein-calorie malnutrition; Z99.81 Dependence on supplemental oxygen; I49.5 Sick sinus syndrome; E87.6 Hypokalemia; J44.9 Chronic obstructive pulmonary disease, unspecified; N18.3 Chronic kidney disease, stage 3 (moderate); I48.2 Chronic atrial fibrillation; M81.0 Age-related osteoporosis without current pathological fracture; Z87.891 Personal history of nicotine dependence; R40.2412 Glasgow coma scale score 13-15, at arrival to emergency department; I25.10 Atherosclerotic heart disease of native coronary artery without angina pectoris; E87.70 Fluid overload, unspecified; L68.0 Hirsutism; E78.5 Hyperlipidemia, unspecified; I45.10 Unspecified right bundle-branch block; F03.90 Unspecified dementia, unspecified severity, without behavioral disturbance, psychotic disturbance, mood disturbance, and anxiety; Z79.82 Long term (current) use of aspirin
CPT/HCPCS: 33208; 36415; 71045; 71046; 74176; 80048; 80053; 80069; 81003; 82947; 83690; 83880; 84132; 85025; 85610; 94760; 96365-59; 96366-59; 96368; 96372; 96376; 97110; 97116; 97162; 97166; 97530; 97535; 99152; 99153; 99285-25; C1785; C1898; G0378; G0480; G0515; J0690; J1644; J1650; J2250; J3010; J3475; J3480; J7030; J7040; J7050; P9612; Q9967

== ENCOUNTER 2018-12-28 12:43 | Emergency (ER) | payer OTHER ==
[~2018-12-28] VITALS: Ht 142.2 cm; Wt 54.4 kg
[~2018-12-28 12:43] MED LIST changes: +**incomplete med rec; +ALBU3IS INH; +ATORVASTATIN CA10 MG PO; +Aspir-Low81 MG PO; +Lopressor 25 mg25 MG PO; +MIRT30 PO; +Neurontin 100100 MG PO; +POTCHL20ER PO; +VITAMIN D-32000 UNIT PO
--- NOTE | 2018-12-28 16:33 | NUR ---
Initial Visit: Palliative Care Consult for goals of care. Pt is A&Ox1 and denies pain at this time. She reports 3/7 anxiety due to not knowing where she is going to live. She denies dyspnea and depression. Engaged in therapeutic conversation regarding goals of care. Discussed plan to find a new place for her to for her health and safety. Pt is agreeable to this plan. Engaged in discussion about a new place and Pt appears to have a positive outlook reporting an oppertunity to meet new people and possibly establishing friendships. Pt appears to have a adequate level of understanding and engaged in discussion regarding current POLST on file. Discussed and educated on each section of life sustaining measures and Pt V/U. Pt reports current POLST reflects her wishes. Current POLST states DNR, Limited Treatment, and No Artificial Nutrition by Tube. Pt reports no other concerns at this time. Spoke with Pt's ED nurse and she reports no concerns at this time. Spoke with care rep Kelin and she report the plan is for Pt to be transported to [facility] for rehabilitation and then placement. Will remain available.
--- NOTE | 2018-12-28 16:53 | NUR ---
Late Entry from Initial Visit. Dr Chinchilla placed admitting orders but due to Pt being transported to [facility] discharge orders are being placed. Pt did not transport to the floor.
== END 2018-12-28 18:45 | disposition home or self-care (01) ==
LOC: ER 12:43
DX: R53.1 Weakness (principal); J44.9 Chronic obstructive pulmonary disease, unspecified; N18.9 Chronic kidney disease, unspecified; I50.30 Unspecified diastolic (congestive) heart failure; I48.91 Unspecified atrial fibrillation; Z87.891 Personal history of nicotine dependence
CPT/HCPCS: 99284